=== PATIENT | male | born 1955 | race Caucasian/White ===

== ENCOUNTER 2019-09-15 10:50 | Day surgery (SDC) | payer OTHER ==
[2019-09-15] MEDS ORDERED: FLAGYL500MG PO (13:14)
[2019-09-15] MEDS ORDERED: CIPRO500 MG PO (13:14)
[2019-09-15] MEDS ORDERED: DICY20TA PO (13:14)
== END 2019-09-15 18:19 | disposition home or self-care (01) ==
LOC: AMB-ENDOS 10:50
DX: K63.5 Polyp of colon (principal); K57.30 Diverticulosis of large intestine without perforation or abscess without bleeding